=== PATIENT | male | born 1975 | race Hispanic/Latino ===

== ENCOUNTER 2025-01-21 09:15 | Emergency (ER) | payer OTHER ==
[~2025-01-21] VITALS: Ht 188 cm; Wt 137.4 kg
[~2025-01-21 09:15] MED LIST: AMLO-257 PO; ASPI-1197 PO; GLIP5TAB15 PO; LISI10TA24 PO; METF-444 PO; SIMV40TA59 PO
--- NOTE | 2025-01-21 10:06 | HMCIMG ---
EXAM: US for Deep Venous Thrombosis, left Lower Extremity. CLINICAL HISTORY: Leg Pain and Swelling TECHNIQUE: Real-time ultrasound scan of the veins of the left lower extremity with color Doppler flow, spectral waveform analysis and compression. COMPARISON: None provided. FINDINGS: DEEP VEINS: The common femoral, superficial femoral, and popliteal veins are echolucent and compressible. There is normal color Doppler flow throughout. The visualized calf veins appear patent. SOFT TISSUES: No popliteal fossa cyst or other abnormalities. IMPRESSION: No deep venous thrombosis evident on left lower extremity examination. /[place]
--- NOTE | 2025-01-21 10:17 | ERN ---
General Chief Complaint: Hip Pain/Injury Stated Complaint: HIP PAIN Time Seen by MD: 09:18 Source: patient History of Present Illness Initial Comments Patient is a 49-year-old gentleman coming in complaining of hip pain. Patient has been evaluated by physical therapist for sciatica. Per patient he was sent in for further evaluation of a possible DVT of the lower extremity. Allergies: Coded Allergies: No Known Allergies (Verified Allergy, Unknown, 03/15/17) Home Meds Active Scripts Aspirin (Aspirin) 81 Mg Tab.chew, 81 MG PO DAILY, #30 TAB.CHEW Prov:ORACIO SOLARES MD 03/16/17 Reported Medications Metformin HCl (Metformin HCl) 500 Mg Tablet, 1000 MG PO BID, TAB 03/15/17 Lisinopril (Lisinopril) 10 Mg Tablet, 10 MG PO DAILY, TAB 03/15/17 Glipizide (Glipizide) 5 Mg Tablet, 5 MG PO DAILY, TAB 03/15/17 Simvastatin (ZOCOR) 40 Mg Tablet, 40 MG PO HS, TAB 03/15/17 Amlodipine Besylate (Amlodipine Besylate) 5 Mg Tablet, 5 MG PO DAILY, TAB 03/15/17 Past Medical History Past Medical History: Diabetes-Type II, High Cholesterol, Hypertension Past Surgical History: None ROS Dictation CONSTITUTIONAL: No chills, no fever, no weakness, no diaphoresis, no malaise. HEAD/FACE: No signs of trauma. EENT: No eye pain, no blurred vision, no tearing, no double vision, no ear pain, no ear discharge, no nose pain, no nasal congestion, no throat pain, no throat swelling, no mouth pain. RESPIRATORY: No cough, no orthopnea, no SOB, no stridor, no wheezing. CARDIOVASCULAR: No chest pain, no edema, no palpitations, no syncope. GASTROINTESTINAL/ABDOMINAL: No abdominal pain, no constipation, no diarrhea, no nausea, no vomiting. GENITOURINARY: No abnormal discharge, no dysuria, no frequent urination, no hematuria. No complaints of pain in the genitals. MUSCULOSKELETAL: No back pain, no gout, no joint pain, no joint swelling, muscle pain, no muscle stiffness, no neck pain. INTEGUMENTARY: No change in color, no change in hair/nails, no dryness, no lesion, no lumps, no rash. NEUROLOGICAL/PSYCH: No anxiety, not depressed, no emotional problem, no headache, no numbness, no pre-existing deficit, no history of seizures, no tremors, no weakness. HEMATOLOGIC/LYMPHATIC: Not anemic, no history of blood clots, no apparent bleeding, no bruising, glands not swollen. All Systems Negative, Except as Noted. Physical Exam Physical Exam Dictation VITAL SIGNS: Reviewed. GENERAL APPEARANCE: Alert, oriented x3, no acute distress, obese. HEAD AND FACE: Non-traumatic. EYES: PERRL, pink conjunctivas, eyelid no trauma, anterior chamber clear. EARS: Pinnas intact and no signs of trauma or erythema. Ear canals clear and no discharge. TMs no erythema. NOSE: No discharge, no bleeding. OROPHARYNX: Mouth normal, teeth no caries, tongue pink. Pharynx clear, no erythema. Tonsils no exudates, no abscesses noted. Mucous membrane moist. NECK: Supple, non-tender, no thyromegaly, no masses, no JVD, no bruits. BREAST: Deferred. CHEST: No tenderness, no crepitus, no paradoxical movement, no retractions. LUNGS: Clear, well-ventilated, symmetric, no rales, no wheezing, no rhonchi, no stridor, good breath sounds bilaterally. HEART: Regular rate, regular rhythm, no murmur, no gallops. VASCULAR: No peripheral edema. ABDOMEN: Soft, positive bowel sounds, nondistended, no guarding, nontender, no rebound, no masses no hepatomegaly, no splenomegaly, no Ortiz's sign, no hernias. RECTAL: Deferred. GENITAL: Deferred. NEUROLOGICAL: Normal speech, gross motor function intact, gross sensory function intact. MUSCULOSKELETAL: Neck nontender, full range of motion, back nontender, full range of motion. EXTREMITIES: Nontender, full range of motion. Left leg tenderness on palpation SKIN: Color pink, dry, no turgor, no rash, no lacerations, no abrasions, no contusions. LYMPHATICS: Deferred. Results EKG/XRAY/US/CT/MRI Ultrasound Comment [place] [address] [place] [id number] IMAGING REPORT Signed PATIENT: REG CHOPRA MR#: [id number] : 1975 SEX: M AGE: 49 LOCATION: [facility] ORDER 5 STATUS: REG ER REPORT#: [id number] SERVICE 4 REASON: left calf ORDERING PHYSICIAN: ROSAURA MONK MD PROCEDURE: VENOUS UNI - US VENOUS DOPPLER UNILATERAL EXAM: US for Deep Venous Thrombosis, left Lower Extremity. CLINICAL HISTORY: Leg Pain and Swelling TECHNIQUE: Real-time ultrasound scan of the veins of the left lower extremity with color Doppler flow, spectral waveform analysis and compression. COMPARISON: None provided. FINDINGS: DEEP VEINS: The common femoral, superficial femoral, and popliteal veins are echolucent and compressible. There is normal color Doppler flow throughout. The visualized calf veins appear patent. SOFT TISSUES: No popliteal fossa cyst or other abnormalities. IMPRESSION: No deep venous thrombosis evident on left lower extremity examination. /[place] DICTATED BY: JEROME SINGLETARY Jr., MD DATE: 01/21/251104 ELECTRONICALLY SIGNED BY: JEROME SINGLETARY Jr., MD DATE: 01/21/251104 [facility] MDM: Differential diagnosis: DVT, left-sided sciatica, chronic hip pain, Rationale: Tests considered and ordered secondary to shared decision making include: Previous outside records reviewed: Old ER visits. Risk of complication and/or morbidity or mortality of patient management: None Medications-Per medication reconciliation Need for hospitalization: Patient does not meet criteria for hospitalization. Need for emergency major/minor surgery: No Patient is a 49-year-old gentleman coming in to be evaluated for lower left extremity pain. Patient states that he has been evaluated by physical therapist for a chronic sciatica. Ultrasound did not disclose acute findings. Patient will be discharged in stable condition with a diagnosis of sciatica. ED Course Orders Procedure Category Date Status Time Us Venous Doppler US 01/21/25 Resulted Unilateral : Vital Signs Date Time Temp Pulse Resp B/P (MAP) Pulse Ox O2 Delivery O2 Flow Rate FiO2 01/21/25 09:18 97.9 81 18 167/92 96 Room Air 0 DX & DISP Disposition: Discharge Departure Impression: Primary Impression: Sciatica of left side Condition: Stable Additional Instructions: FOLLOW-UP WITH PRIMARY CARE PROVIDER IN 1 TO 2 DAYS. TAKE MEDICATIONS DIRECTED HERE IN THE EMERGENCY ROOM. OKAY TO CONTINUE HOME MEDICATIONS UNLESS OTHERWISE DISCUSSED DURING YOUR VISIT IN THE EMERGENCY ROOM TODAY. RETURN TO YOUR NEAREST EMERGENCY ROOM IF SYMPTOMS WORSEN OR IF THERE IS NO IMPROVEMENT. CALL 911 IF YOU NEED IMMEDIATE ASSISTANCE. TAKE TYLENOL [id number] NEEDED AND IF NO CONTRAINDICATIONS ARE PRESENT. INCREASE ORAL HYDRATION. A WOUND CULTURE OR URINE CULTURE WAS ORDERED HERE IN THE EMERGENCY ROOM DEPARTMENT PLEASE FOLLOW-UP WITH PRIMARY CARE PROVIDER AND ADVISE THEM TO GET REPORTS FROM OUR FACILITY. IF YOU HAD ANY YVES WRAP/SPLINTS THAT WERE APPLIED HERE, PLEASE DO NOT REMOVE THEM UNTIL YOU SEE YOUR PRIMARY CARE OR SPECIALTY. Referrals: Referrals: ELE [facility] (PCP) Time of Disposition: 10:16 ROSAURA MONK MD Jan 21, 2025 10:17
[2025-01-21 11:05] VITALS: BP 149/72; PULSE 88; RESP 20; TEMP 98.5; O2SAT 99
--- NOTE | 2025-01-21 11:06 | NUR ---
PT AMBULATING WITH OUT ASSISTANCE,NAD, OUT THE DISCHARGE EXIT.
== END 2025-01-21 11:07 | disposition home or self-care (01) ==
LOC: EDH 09:15
DX: M54.32 Sciatica, left side (principal); M79.662 Pain in left lower leg; E11.9 Type 2 diabetes mellitus without complications; E78.00 Pure hypercholesterolemia, unspecified; I10 Essential (primary) hypertension; Z79.82 Long term (current) use of aspirin; Z79.84 Long term (current) use of oral hypoglycemic drugs; Z79.899 Other long term (current) drug therapy
CPT/HCPCS: 93971; 99284